=== PATIENT | female | born 1970 | race American Indian/Alaskan Native ===

== ENCOUNTER 2018-01-07 16:53 | Emergency (ER) | payer SELFPAY ==
[2018-01-07] MEDS ORDERED: PROVENTIL IH ONE ×2 (17:02→18:33)
[2018-01-07] MEDS ORDERED: ATROVENT IH ONE ×2 (17:02→18:33)
--- NOTE | 2018-01-07 17:22 | Emergency Department Report ---
ED Shortness of Breath HPI - General Chief Complaint: Dyspnea/Respdistress Stated Complaint: S.O.B Time Seen by Provider: 01/07/18 17:15 Source: patient Mode of arrival: Ambulatory Limitations: No Limitations - History of Present Illness Initial Comments: Patient is 47 years old female history of asthma, mitral valve replacement. Patient presents to the ER complaining of shortness of breath cough with greenish sputum for the last 2-3 days. Patient is also complaining of low- grade fever. Patient denied any nausea or vomiting. Patient stated that she used cocaine for first time this weekend. She also stated that he had mild chest pain, tightness in nature and does not radiate. MD Complaint: shortness of breath, cough, "asthma attack" - Related Data Home Medications Medication Instructions Recorded Confirmed Last Taken Aspirin [Adult Low Dose Aspirin EC] 81 mg PO QDAY 01/07/18 01/07/18 Unknown Guaifen/Phenyleph/Acetaminophn 2 each PO Q12H PRN 01/07/18 01/07/18 Unknown [Mucinex Fast-Max Cold-Sinus Tb] Allergies Allergy/AdvReac Type Severity Reaction Status Date / Time tomato Allergy Unknown Verified 01/07/18 16:58 ED Review of Systems ROS: Stated complaint: S.O.B Other details as noted in HPI Comment: All other systems reviewed and negative Constitutional: fever. denies: chills Respiratory: cough, shortness of breath, wheezing. denies: orthopnea, SOB with exertion, SOB at rest Cardiovascular: chest pain. denies: palpitations, dyspnea on exertion, orthopnea Gastrointestinal: denies: abdominal pain, nausea, vomiting, diarrhea, constipation, hematemesis, melena, hematochezia Musculoskeletal: denies: back pain Neurological: denies: headache, weakness, numbness, paresthesias, confusion, abnormal gait ED Past Medical Hx - Past Medical History Hx Heart Attack/AMI: Yes (cabbage) Hx Asthma: Yes - Surgical History Additional Surgical History: cabbage,left elbow,right eye - Social History Smoking Status: Former Smoker Substance Use Type: None - Medications Home Medications: Home Medications Medication Instructions Recorded Confirmed Last Taken Type Aspirin [Adult Low Dose Aspirin EC] 81 mg PO QDAY 01/07/18 01/07/18 Unknown History Guaifen/Phenyleph/Acetaminophn 2 each PO Q12H PRN 01/07/18 01/07/18 Unknown History [Mucinex Fast-Max Cold-Sinus Tb] ED Physical Exam - General Limitations: No Limitations General appearance: alert, in no apparent distress - Head Head exam: Present: atraumatic, normocephalic, normal inspection - Eye Eye exam: Present: normal appearance - ENT ENT exam: Present: normal exam, normal orophraynx, mucous membranes moist - Neck Neck exam: Present: normal inspection, full ROM. Absent: tenderness, meningismus, lymphadenopathy - Respiratory Respiratory exam: Present: wheezes. Absent: normal lung sounds bilaterally, respiratory distress, rales, rhonchi - GI/Abdominal GI/Abdominal exam: Present: soft, normal bowel sounds. Absent: distended, tenderness, guarding, rebound, rigid, mass - Extremities Exam Extremities exam: Present: normal inspection, full ROM, normal capillary refill. Absent: tenderness, pedal edema, joint swelling, calf tenderness - Back Exam Back exam: Present: normal inspection, full ROM. Absent: tenderness, CVA tenderness (R), CVA tenderness (L) - Neurological Exam Neurological exam: Present: alert, oriented X3, CN II-XII intact, reflexes normal - Skin Skin exam: Present: warm, intact, normal color ED Course Vital Signs 01/07/18 01/07/18 01/07/18 16:55 17:04 17:16 Temperature 99.1 F Pulse Rate 121 H 124 H 109 H Respiratory 26 H 20 21 Rate Blood Pressure 124/83 146/100 146/100 Blood Pressure [Left] O2 Sat by Pulse 98 97 100 Oximetry 01/07/18 01/07/18 01/07/18 17:30 17:46 17:58 Temperature Pulse Rate 109 H 106 H Respiratory 19 24 Rate Blood Pressure 146/100 146/100 Blood Pressure [Left] O2 Sat by Pulse 100 99 97 Oximetry 01/07/18 01/07/18 01/07/18 18:00 19:00 19:08 Temperature Pulse Rate 105 H 104 H Respiratory 29 H 28 H 20 Rate Blood Pressure 146/100 152/91 Blood Pressure [Left] O2 Sat by Pulse 98 93 Oximetry 01/07/18 01/07/18 20:00 21:38 Temperature Pulse Rate 93 H 96 H Respiratory 25 H 16 Rate Blood Pressure 175/95 Blood Pressure 156/84 [Left] O2 Sat by Pulse 94 98 Oximetry ED Medical Decision Making - Lab Data Result diagrams: 01/07/18 17:20 01/07/18 17:20 - EKG Data -: EKG Interpreted by Me EKG shows normal: sinus rhythm - EKG Data Interpretation: no acute changes - Radiology Data Radiology results: report reviewed Referring Physician: AURA KING Patient Name: JOSÉ MANUEL PALOMINO Date of : 1970 Sex: Female Report Date: 2018-01-07 Report Status: Finalized Findings [facility] [address] [place] [address] XRay Report Signed Patient: JOSÉ MANUEL PALOMINO MR#: [id number] : 1970 Acct:[id number] Age/Sex: 47 / F ADM Date: 01/07/18 Loc: ED Attending Dr: Ordering Physician: AURA KING Date of Service: 01/07/18 Procedure(s): XR chest 1V ap Accession Number(s): [id number] cc: AURA KING Fluoro Time In Minutes: FINAL REPORT EXAM: XR CHEST 1V AP HISTORY: Dyspnea TECHNIQUE: AP portable view of the chest PRIORS: None. FINDINGS: Lines, tubes, and devices: median sternotomy wires are noted. Lungs and pleura: Trachea is normal in position. Lungs are clear of infiltrate, pleural effusion, vascular congestion, or pneumothorax. Cardiomediastinal silhouette: Cardiac and mediastinal silhouettes are unremarkable. Other: Bony structures are intact. IMPRESSION: No acute cardiopulmonary process seen. Transcribed By: [facility] Dictated By: BRENNEN WOLFF MD Electronically Authenticated By: BRENNEN WOLFF MD Signed Date/Time: 01/07/181836 DD/ 36 TD/TT: 01/07/181836 - Medical Decision Making Patient stated that she is feeling much better after the Lasix and a breathing treatment. Patient stated that she was told before that she had congestive heart failure. I counseled the patient about how cocaine abuse. Patient stated that she had her surgery in [place] and July 2017 and she supposed to follow with her doctor in the next few weeks. Critical care attestation.: If time is entered above; I have spent that time in minutes in the direct care of this critically ill patient, excluding procedure time. ED Disposition Clinical Impression: Shortness of breath, Asthmatic bronchitis Disposition: - TO HOME OR SELFCARE Is pt being admited?: No Condition: Stable Instructions: Chronic Bronchitis (ED), Heart Failure (ED) Referrals: PRIMARY CARE, [Primary Care Provider] - 3-5 Days
[2018-01-07 17:53] LABS: Basophils # (Auto) 0.1 K/mm3 (0.0-0.1); Basophils % (Auto) 0.7 % (0.0-1.8); Eosinophils # (Auto) 0.3 K/mm3 (0.0-0.4); Eosinophils % (Auto) 2.4 % (0.0-4.3); Hematocrit 39.3 % (30.3-42.9); Hemoglobin 12.5 gm/dl (10.1-14.3); Lymphocytes # (Auto) 2.9 K/mm3 (1.2-5.4); Lymphocytes % (Auto) 23.1 % (13.4-35.0); Mean Corpuscular HGB Conc 32 % (30-34); Mean Corpuscular Hemoglobin 27 pg (28-32); Mean Corpuscular Volume 85 fl (79-97); Monocytes # (Auto) 1.1 K/mm3 (0.0-0.8); Monocytes % (Auto) 8.6 % (0.0-7.3); Platelet Count 140 K/mm3 (140-440); Red Blood Count 4.61 M/mm3 (3.65-5.03); Red Cell Distribution Width 16.3 % (13.2-15.2)
[2018-01-07] MEDS ORDERED: TYLENOL PO ONE (17:56)
[2018-01-07 18:22] LABS: Alanine Aminotransferase 15 units/L (7-56); Albumin 4.1 g/dL (3.9-5); BUN/Creatinine Ratio 12; Blood Urea Nitrogen 12 mg/dL (7-17); Calcium 9.6 mg/dL (8.4-10.2); Hemolysis Index 61
--- NOTE | 2018-01-07 18:42 | XRay Report ---
FINAL REPORT EXAM: XR CHEST 1V AP HISTORY: Dyspnea TECHNIQUE: AP portable view of the chest PRIORS: None. FINDINGS: Lines, tubes, and devices: median sternotomy wires are noted. Lungs and pleura: Trachea is normal in position. Lungs are clear of infiltrate, pleural effusion, vascular congestion, or pneumothorax. Cardiomediastinal silhouette: Cardiac and mediastinal silhouettes are unremarkable. Other: Bony structures are intact. IMPRESSION: No acute cardiopulmonary process seen.
[2018-01-07] MEDS ORDERED: LASIX IV ONE (19:51)
[2018-01-07 20:01] LABS: Bilirubin,Urine NEG (Negative); Blood,Urine NEG (Negative); Color,Urine Yellow (Yellow); Mucus,Urine FEW /HPF; Protein,Urine <15 mg/dL mg/dL (Negative); Urobilinogen,Urine < 2.0 mg/dL (<2.0)
[2018-01-07 20:09] LABS: Amphetamine Screen,Urine PRESUMPTIVE NEGATIVE; Benzodiazepines Screen,Urine PRESUMPTIVE NEGATIVE; Methadone Screen,Urine PRESUMPTIVE NEGATIVE; Opiate Screen,Urine PRESUMPTIVE NEGATIVE
[2018-01-07 20:22] LABS: Cannabinoid Screen,Urine PRESUMPTIVE POSITIVE; Cocaine Screen,Urine PRESUMPTIVE POSITIVE
[2018-01-07 23:04] VITALS: BP 148/90
== END 2018-01-07 23:03 | disposition home or self-care (01) ==
LOC: ED 16:53
DX: J45.909 Unspecified asthma, uncomplicated (principal); I25.2 Old myocardial infarction; Z87.891 Personal history of nicotine dependence; Z79.82 Long term (current) use of aspirin; Z91.018 Allergy to other foods; Z79.899 Other long term (current) drug therapy
CPT/HCPCS: 36415; 71045; 80053; 80307; 81001; 83880; 84484; 85025; 93005; 93010; 94640; 96374; 96375; 99285; J1940; J2930

== ENCOUNTER 2019-05-20 02:28 | Emergency (ER) | payer SELFPAY ==
[2019-05-20] MEDS ORDERED: predniSONE 20 MG TAB PO ONE (02:37)
[2019-05-20] MEDS ORDERED: IPRATROPIUM 0.02% NEBU 2.5 ML IH ONE (02:37)
[2019-05-20] MEDS ORDERED: ALBUTEROL 2.5 MG/3 ML NEBU IH ONE (02:37)
[2019-05-20] MEDS ORDERED: ONDANSETRON 4 MG ODT TAB PO ONE (02:38)
[2019-05-20] MEDS ORDERED: ACETAMINOPHEN W/CODEINE 300-30 MG TAB PO ONE (02:38)
[2019-05-20 03:26] VITALS: BP 135/72
--- NOTE | 2019-05-20 03:37 | Emergency Department Report ---
ED Asthma HPI - General Chief Complaint: Dyspnea/Respdistress Stated Complaint: VALERIO Time Seen by Provider: 05/20/19 02:37 Source: EMS Mode of arrival: Stretcher Limitations: No Limitations - History of Present Illness Initial Comments: Mrs. Huerta is a 48-year-old female with history of asthma, CHF and valvular heart disease status post Bovine valve replacement who presents with respiratory wheezing cough for the past 2 days. She has dyspnea on exertion only walking one block. While walking to the store this evening, shortness breath worsened. EMS was called. She arrived via EMS after receiving bronchodilator treatment. She normally has asthma attack of months. She uses nebulizer at home. She uses prednisone as needed. She recently moved from [facility] within the last few months. History of tobacco use. She stopped smoking 2 months ago. Mrs. Huerta is here visiting her son. She plans to return to [place] her hometown. Complaint: "asthma attack", shortness of breath, wheezing -: Gradual, days(s) (2) Asthma History: history of frequent attac Severity: moderate Context: none known Associated Symptoms: dry cough Treatments Prior to Arrival: inhaled bronchodilator - Related Data Home Medications Medication Instructions Recorded Confirmed Last Taken Aspirin [Adult Low Dose Aspirin EC] 81 mg PO QDAY 01/07/18 01/07/18 Unknown Guaifen/Phenyleph/Acetaminophn 2 each PO Q12H PRN 01/07/18 01/07/18 Unknown [Mucinex Fast-Max Cold-Sinus Tb] Previous Rx's Medication Instructions Recorded Last Taken Type ALBUTEROL Inhaler (OR & NICU) 2 puff IH QID PRN #1 inhalation 01/07/18 Unknown Rx [ProAir HFA Inhaler] Amoxicillin [Amoxicillin TAB] 875 mg PO BID #14 tablet 01/07/18 Unknown Rx Furosemide [Lasix] 20 mg PO QDAY #20 tablet 01/07/18 Unknown Rx Potassium Chloride [K-Dur] 10 meq PO QDAY #20 tablet 01/07/18 Unknown Rx ALBUTEROL NEB's [Proventil 0.083% 2.5 mg IH TID PRN #1 box 05/20/19 Unknown Rx NEBS] Furosemide [Lasix TAB] 20 mg PO QDAY 14 Days #14 tablet 05/20/19 Unknown Rx Prednisone [predniSONE 10 mg 10 mg PO .TAPER #1 tab.ds.pk 05/20/19 Unknown Rx (6-Day Pack, 21 Tabs)] levoFLOXacin [Levaquin TAB] 500 mg PO QDAY 6 Days #6 tablet 05/20/19 Unknown Rx Allergies Allergy/AdvReac Type Severity Reaction Status Date / Time tomato Allergy Unknown Verified 01/07/18 16:58 ED Review of Systems ROS: Stated complaint: VALERIO Other details as noted in HPI Comment: All other systems reviewed and negative Constitutional: denies: fever, malaise Respiratory: cough, shortness of breath, wheezing Cardiovascular: denies: chest pain Gastrointestinal: denies: abdominal pain ED Past Medical Hx - Past Medical History Previous Medical History?: Yes Hx Heart Attack/AMI: Yes (cabbage) Hx Asthma: Yes - Surgical History Additional Surgical History: cabbage,left elbow,right eye - Social History Smoking Status: Former Smoker Substance Use Type: Alcohol - Medications Home Medications: Home Medications Medication Instructions Recorded Confirmed Last Taken Type ALBUTEROL Inhaler (OR & NICU) 2 puff IH QID PRN #1 inhalation 01/07/18 Unknown Rx [ProAir HFA Inhaler] Amoxicillin [Amoxicillin TAB] 875 mg PO BID #14 tablet 01/07/18 Unknown Rx Aspirin [Adult Low Dose Aspirin EC] 81 mg PO QDAY 01/07/18 01/07/18 Unknown History Furosemide [Lasix] 20 mg PO QDAY #20 tablet 01/07/18 Unknown Rx Guaifen/Phenyleph/Acetaminophn 2 each PO Q12H PRN 01/07/18 01/07/18 Unknown History [Mucinex Fast-Max Cold-Sinus Tb] Potassium Chloride [K-Dur] 10 meq PO QDAY #20 tablet 01/07/18 Unknown Rx ALBUTEROL NEB's [Proventil 0.083% 2.5 mg IH TID PRN #1 box 05/20/19 Unknown Rx NEBS] Furosemide [Lasix TAB] 20 mg PO QDAY 14 Days #14 tablet 05/20/19 Unknown Rx Prednisone [predniSONE 10 mg 10 mg PO .TAPER #1 tab.ds.pk 05/20/19 Unknown Rx (6-Day Pack, 21 Tabs)] levoFLOXacin [Levaquin TAB] 500 mg PO QDAY 6 Days #6 tablet 05/20/19 Unknown Rx ED Physical Exam - General Limitations: No Limitations General appearance: alert, in no apparent distress, other (frequent cough speaking full sentences) - Head Head exam: Present: atraumatic, normocephalic - Eye Eye exam: Present: normal appearance - ENT ENT exam: Present: mucous membranes moist - Neck Neck exam: Present: normal inspection, full ROM - Respiratory Respiratory exam: Present: normal lung sounds bilaterally. Absent: respiratory distress, wheezes, rales, rhonchi - Cardiovascular Cardiovascular Exam: Present: regular rate, normal rhythm, normal heart sounds. Absent: systolic murmur, diastolic murmur, rubs, gallop - GI/Abdominal GI/Abdominal exam: Present: soft, normal bowel sounds. Absent: distended, tenderness, guarding, rebound - Extremities Exam Extremities exam: Present: normal inspection - Back Exam Back exam: Present: normal inspection - Neurological Exam Neurological exam: Present: alert, oriented X3 - Psychiatric Psychiatric exam: Present: normal affect, normal mood - Skin Skin exam: Present: warm, dry, intact, normal color. Absent: rash ED Course Vital Signs 05/20/19 05/20/19 03:13 03:26 Temperature 98.3 F Pulse Rate 101 H Respiratory 22 22 Rate Blood Pressure 135/72 [Left] O2 Sat by Pulse 96 9 L Oximetry ED Medical Decision Making - Lab Data Result diagrams: 05/20/19 03:45 05/20/19 03:45 - Radiology Data Radiology results: report reviewed Chest x-ray: Mild pulmonary edema according to radiology impression - Medical Decision Making Mrs. Huerta presents with acute bronchitis and asthma exacerbation. With history of tobacco abuse, antibiotics are indicated. Possible component of CHF cardiogenic wheezing. Describes furosemide as well as Levaquin prednisone and albuterol nebulizer solution Labs review notable BMP 1520, WBC 12,000 Critical care attestation.: If time is entered above; I have spent that time in minutes in the direct care of this critically ill patient, excluding procedure time. ED Disposition Clinical Impression: Acute bronchitis, Asthma exacerbation, History of CHF (congestive heart failure) Disposition: - TO HOME OR SELFCARE Is pt being admited?: No Does the pt Need Aspirin: No Condition: Stable Instructions: Asthma (ED), Acute Bronchitis (ED) Prescriptions: Furosemide [Lasix TAB] 20 mg PO QDAY 14 Days #14 tablet levoFLOXacin [Levaquin TAB] 500 mg PO QDAY 6 Days #6 tablet Prednisone [predniSONE 10 mg (6-Day Pack, 21 Tabs)] 10 mg PO .TAPER #1 tab.ds.pk ALBUTEROL NEB's [Proventil 0.083% NEBS] 2.5 mg IH TID PRN #1 box PRN Reason: Wheezing Referrals: PRIMARY CARE, [Primary Care Provider] - 7-10 days
--- NOTE | 2019-05-20 03:49 | XRay Report ---
CHEST 1 VIEW INDICATION / CLINICAL INFORMATION: dyspnea hx of asthma and CHF. COMPARISON: 01/07/2018 FINDINGS: SUPPORT DEVICES: None. HEART / MEDIASTINUM: Borderline enlarged. Sternotomy. LUNGS / PLEURA: Mild interstitial pulmonary edema is present. No large pleural effusion. No pneumotho rax. ADDITIONAL FINDINGS: No significant additional findings. IMPRESSION: 1. Mild interstitial pulmonary edema. Signer Name: Nohemy Castano MD Signed: 05/20/2019 3:44 AM Workstation Name: [id number]
[2019-05-20 04:00] LABS: Basophils # (Auto) 0.1 K/mm3 (0.0-0.1); Basophils % (Auto) 0.9 % (0.0-1.8); Eosinophils # (Auto) 0.2 K/mm3 (0.0-0.4); Eosinophils % (Auto) 1.6 % (0.0-4.3); Hematocrit 36.5 % (30.3-42.9); Hemoglobin 11.7 gm/dl (10.1-14.3); Lymphocytes # (Auto) 3.1 K/mm3 (1.2-5.4); Lymphocytes % (Auto) 25.5 % (13.4-35.0); Mean Corpuscular HGB Conc 32 % (30-34); Mean Corpuscular Volume 87 fl (79-97); Monocytes % (Auto) 8.6 % (0.0-7.3); Platelet Count 120 K/mm3 (140-440); Red Blood Count 4.22 M/mm3 (3.65-5.03); Red Cell Distribution Width 15.1 % (13.2-15.2)
[2019-05-20 04:23] LABS: BUN/Creatinine Ratio 15; Blood Urea Nitrogen 15 mg/dL (7-17); Calcium 8.9 mg/dL (8.4-10.2); Hemolysis Index 51
[2019-05-20] MEDS ORDERED: FUROSEMIDE 20 MG TAB PO ONE (04:41)
[2019-05-20] MEDS ORDERED: levoFLOXacin 500 MG TAB PO ONE (04:41)
== END 2019-05-20 05:58 | disposition home or self-care (01) ==
LOC: ED 02:28
DX: J20.9 Acute bronchitis, unspecified (principal); J45.901 Unspecified asthma with (acute) exacerbation; I50.9 Heart failure, unspecified; I25.2 Old myocardial infarction; Z87.891 Personal history of nicotine dependence; Z79.899 Other long term (current) drug therapy; Z91.018 Allergy to other foods
CPT/HCPCS: 36415; 71045; 80048; 83880; 85025; 94640; 99284; J7512; Q0162